=== PATIENT | female | born 1940 | race Caucasian/White ===

== ENCOUNTER 2016-11-24 07:30 | Inpatient (IN) ==
[2016-11-19 14:58] LABS: Appearance,Urine CLEAR; Bilirubin,Urine NEG (NEG); Color,Urine YELLOW; Glucose,Urine (UA) NEGATIVE (NEG); Leukocyte Esterase,Urine NEG /uL (NEG); Nitrate,Urine NEG (NEG); Protein,Urine NEG (NEG); Specific Gravity,Urine 1.019 (1.000-1.035); Urine Blood NEG mg/dL (<0.03); Urobilinogen,Urine NEG (NEG)
[2016-11-19 16:06] LABS: Blood Urea Nitrogen 22 mg/dl (8-23)
[2016-11-19 16:11] LABS: Basophils # (Auto) 0 K/mcL (0.0-0.3); Basophils % (Auto) 0.6 % (0.0-2.0); Eosinophils # (Auto) 0.1 K/mcL (0.0-0.7); Eosinophils % (Auto) 2.4 % (0.0-7.0); Granulocytes % (Auto) 64.9 % (38.0-78.0); Lymphocytes % (Auto) 22.7 % (15.5-49.0); Mean Cell Volume 91.2 fL (80.0-100.0); Mean Corpuscular HGB Conc 32.7 g/dL (31.0-36.0); Mean Corpuscular Hemoglobin 29.8 pg (26.0-34.0); Monocytes # (Auto) 0.4 K/mcL (0.1-0.9); Monocytes % (Auto) 9.4 % (1.0-9.0); Platelet Count 243 K/mcL (140-440); Red Cell Distribution Width 13.5 % (11.5-14.5)
[~2016-11-24 07:30] MED LIST: CELECOXIB 200 MG CAPSULE PO SCH; KETOROLAC 30 MG, ROPIVACAINE HCL/PF 49.5 ML, EPINEPHrine 0.5 MG, 0.9 % SODIUM CHLORIDE ... IJ ONE; PREGABALIN 150 MG CAPSULE PO SCH; ceFAZolin 1 GM VIAL IV SCH; oxyCODONE 10 MG TAB.ER.12H PO SCH
[2016-11-24] MEDS ORDERED: PROPOFOL 200 MG/20 ML VIAL IV ONE (09:25)
[2016-11-24] MEDS ORDERED: MIDAZOLAM 5 MG/5 ML VIAL IV ONE (09:25)
[2016-11-24] MEDS ORDERED: LIDOCAINE HCL/PF 100 MG/5 ML SYRINGE IV ONE (09:25)
[2016-11-24] MEDS ORDERED: DEXAMETHASONE 10 MG/ML VIAL IV ONE (09:25)
[2016-11-24] MEDS ORDERED: SUCCINYLCHOLINE 20 MG/ML ML IV ONE (09:25)
[2016-11-24] MEDS ORDERED: fentaNYL 100 MCG/2 ML VIAL IV ONE (09:25)
[2016-11-24] MEDS ORDERED: ONDANSETRON 4 MG/2 ML VIAL IV ONE (09:25)
[2016-11-24] MEDS ORDERED: ROPIVACAINE HCL/PF 30 ML VIAL IJ ONE (09:25)
[2016-11-24] MEDS ORDERED: TRANEXAMIC ACID 1,000 MG/10 ML VIAL IV ONE ×2 (09:25→11:10)
[2016-11-24] MEDS ORDERED: ONDANSETRON 4 MG/2 ML VIAL ONE (09:31)
[2016-11-24] MEDS ORDERED: GENTAMICIN SULFATE 800 MG/20 ML VIAL IR ONE (09:51)
[2016-11-24] MEDS ORDERED: FLUMAZENIL 0.1 MG/ML ML IV PRN (10:24)
[2016-11-24] MEDS ORDERED: BENZOCAINE/MENTHOL 1 LOZENGE PO PRN ×2 (10:24→11:10)
[2016-11-24] MEDS ORDERED: ePHEDrine 50 MG/ML AMPUL IV PRN (10:24)
[2016-11-24] MEDS ORDERED: NALOXONE HCL 0.4 MG/ML VIAL IV PRN (10:24)
[2016-11-24] MEDS ORDERED: MEPERIDINE 50 MG/ML SYRINGE IM PRN (10:24)
[2016-11-24] MEDS ORDERED: METHOCARBAMOL 1,000 MG/10 ML VIAL IV PRN (10:24)
[2016-11-24] MEDS ORDERED: HYDROmorphone 2 MG/ML SYRINGE IV PRN (10:24)
[2016-11-24] MEDS ORDERED: PROMETHAZINE 25 MG/ML VIAL IV PRN (10:24)
[2016-11-24] MEDS ORDERED: fentaNYL 100 MCG/2 ML VIAL IV PRN (10:24)
[2016-11-24] MEDS ORDERED: IPRATROPIUM/ALBUTEROL 3 ML AMPUL.NEB NEB PRN (10:24)
[2016-11-24] MEDS ORDERED: diphenhydrAMINE 50 MG/ML VIAL IV PRN (10:24)
[2016-11-24] MEDS ORDERED: METOPROLOL TARTRATE 5 MG/5 ML VIAL IV PRN (10:24)
[2016-11-24] MEDS ORDERED: ATROPINE SULFATE 0.4 MG/ML VIAL IV PRN (10:24)
[2016-11-24] MEDS ORDERED: MEPERIDINE 25 MG/ML SYRINGE IV PRN (10:24)
[2016-11-24] MEDS ORDERED: LACTATED RINGERS 1,000 ML IV SCH (10:30)
[2016-11-24] MEDS ORDERED: ACETAMINOPHEN 325 MG TABLET PO PRN (11:10)
[2016-11-24] MEDS ORDERED: FLEETS ADULT ENEMA PR PRN (11:10)
[2016-11-24] MEDS ORDERED: BISACODYL 10 MG SUPP.RECT PR PRN (11:10)
[2016-11-24] MEDS ORDERED: PROMETHAZINE 25 MG/ML VIAL IM PRN (11:10)
[2016-11-24] MEDS ORDERED: MAGNESIUM HYDROXIDE 30 ML ORAL.SUSP PO PRN (11:10)
[2016-11-24] MEDS ORDERED: POLYETHYLENE GLYCOL 3350 17 GM PACKET PO PRN (11:10)
--- NOTE | 2016-11-24 11:10 | Brief Operative Note ---
Date of procedure: 11/24/16 Pre-op diagnosis: left knee oa Post-op diagnosis: same Procedure: left total knee arthroplasty Grafts/Implants: Yes Anesthesia: spinal Complications: none Surgeon: Luis Gaines Airplane Engineer: Daniel Clemente Estimated blood loss (cc): 150 Tourniquet Time (Minutes): 20 Specimens Removed/Pathology: none sent Condition: stable Disposition: PACU
--- NOTE | 2016-11-24 12:19 | XRay Report ---
CLINICAL INFORMATION: Total knee prostheses COMPARISON: None. FINDINGS: Total knee prostheses is anatomically aligned. There are no osseous abnormality. Gas and soft tissue swelling seen as expected. IMPRESSION: Negative Interpreted and Authenticated by: Luis Hong 11/24/16
--- NOTE | 2016-11-24 12:22 | Operative Note ---
DATE OF OPERATION: 11/24/2016 PREOPERATIVE DIAGNOSIS: Degenerative joint disease, left knee. POSTOPERATIVE DIAGNOSIS: Degenerative joint disease, left knee. PROCEDURE: Left total knee arthroplasty. SURGEON: Andrew Gaines M.D. STEWARD/STEWARDESS NIGHT SURGEON: Daniel Clemente PA-C. ANESTHESIA: Spinal with LMA assist. ESTIMATED BLOOD LOSS: 100 mL. COMPLICATIONS: None noted. SPECIMENS REMOVED: None. DRAINS: None. TOURNIQUET TIME: 20 minutes at 300 mmHg. IMPLANTS: DePuy Attune tibial insert fixed bearing posterior stabilized size 4, 5 mm AOX; DePuy Attune patella medialized dome 32 mm cemented AOX; DePuy Attune femoral posterior stabilized size 4, left cemented; DePuy Attune tibial base fixed bearing size 3 cemented. INDICATIONS: The patient has had a long-standing history of worsening pain in the knee that has failed conservative treatment. Radiographs have confirmed advanced degenerative joint disease. After a long discussion about treatment options, the patient elected to proceed with a knee arthroplasty. The risks and benefits were discussed with the patient in detail including, but not limited to, the risks of anesthesia, problems with the heart or lungs related to anesthesia, infection, compromise or injury to the nerves and blood vessels, deep venous thrombosis, pulmonary embolism, pneumonia, continued pain after surgery, worsening pain or symptoms after surgery, swelling, loss of motion, instability, leg length discrepancy, and need for repeat surgery. DESCRIPTION OF PROCEDURE: The patient was seen in the pre-anesthesia waiting room where all questions were answered and the correct side and site were identified and marked. The patient was transferred to the operating room and administered the anesthetic and given pre-operative antibiotics. A time-out was then called. The extremity was prepped and draped, exsanguinated, and the tourniquet was inflated to 300 mmHg. A midline skin incision was then made with a standard medial parapatellar arthrotomy. Debridement of the menisci, ACL, and PCL was performed followed by balancing releases in the medial lateral plane. We then established intramedullary access to both the femur and tibia in a standard fashion. The femoral guide jose miguel was initially placed with the distal femoral guide, pinned into place, and the distal femoral cut was performed and checked with a flat plate. We then turned our attention to the tibia. The intramedullary guide was placed with the proximal tibial cutting block. The block was appropriately positioned off the affected side, varus and valgus was checked with the extra-medullary guide, and the block was pinned into place. The proximal tibial cut was performed and the tibia was prepared for the tibial implant with appropriate rotation. The tibia, femur, and posterior compartment were debrided of osteophytes, loose bodies, and meniscal fragments We then used the gap balancing technique to balance extension with the first two cuts and good balancing was obtained with a 10 millimeter gap block. We turned our attention back to the femur and used the referencing block and implant to size appropriately. Using the gap balancing technique for the flexion space we set our rotation of the femur off the tibial cut. Anesthesia gave the patient 1 gram of Tranexamic Acid via an intravenous route. We placed the 4 in 1 cutting block and made anterior, posterior, and chamfer cuts. Box plasty cuts were then made in a standard fashion for the posterior stabilized prosthesis. We then completed osteophyte release and posterior capsule release from the posterior compartment. Trials were placed and we chose the polyethylene insert thickness that provided the best stability in all planes. With the trials in place, we did a measured resection for a resurfacing patella. We sized the patella and placed the patella trial and performed a lateral facetectomy with the saw and rongeur. Good tracking was obtained. A lateral release was performed. We removed all trials, irrigated and dried all cut surfaces. We cemented the components into place including tibia, femur and patella. We placed a trial liner and held the knee in full extension with the patella compressed while the cement cured. We then removed all excess cement and placed the final polyethylene tibiofemoral component. Irrigation with 3 liters of antibiotic saline was then performed using jet-lavage. We let the tourniquet down and coagulated bleeding vessels. We injected a 100 cubic centimeter volume including Ropivacaine 49.25 cubic centimeters at 5 milligrams per cubic centimeter, Ketorolac 30 milligrams, and Epinephrine 0.5 milligrams into 100 cubic centimeters volume of normal saline. We placed a deep drain and closed the retinaculum with looped #0 Maxon. We closed the subcutaneous tissue and skin in layers out to el in the skin. A sterile pressure dressing was applied. All needle and sponge counts were correct. The patient was transferred to the recovery room in stable condition. YVETTE:sherly Job ID: [id number] Doc ID: [id number] Andrew Gaines MD
[2016-11-24] MEDS: 0.9 % SODIUM CHLORIDE 1,000 ML IV SCH ×2 (12:30→20:31)
[2016-11-24] MEDS: 0.9 % SODIUM CHLORIDE 10 ML SYRINGE IV SCH ×2 (12:49→21:32)
[2016-11-24] MEDS: KETOROLAC 15 MG/ML VIAL IV SCH ×2 (12:49→17:08)
[2016-11-24] MEDS: HYDROcodone/APAP 10/325MG TABLET PO PRN ×2 (14:44→22:39)
[2016-11-24] MEDS: HYDROmorphone 2 MG/ML SYRINGE IV PRN (14:49)
[2016-11-24] MEDS: FERROUS SULFATE 325 MG TABLET PO SCH (17:08)
[2016-11-24] MEDS: ceFAZolin 1 GM VIAL IV SCH (17:08)
[2016-11-24] MEDS: SENNOSIDES 1 TABLET PO SCH (20:30)
[2016-11-24] MEDS: DOCUSATE SODIUM 100 MG CAPSULE PO SCH (20:31)
[2016-11-24] MEDS: ASPIRIN 325 MG ENTERIC COATED TABLET PO SCH (20:31)
[2016-11-25] MEDS: KETOROLAC 15 MG/ML VIAL IV SCH ×5 (00:07→23:23)
[2016-11-25] MEDS: ceFAZolin 1 GM VIAL IV SCH (00:07)
[2016-11-25] MEDS: HYDROmorphone 2 MG/ML SYRINGE IV PRN ×3 (01:51→19:22)
[2016-11-25] MEDS: METHOCARBAMOL 750 MG TABLET PO PRN ×2 (01:52→20:49)
[2016-11-25] MEDS: 0.9 % SODIUM CHLORIDE 1,000 ML IV SCH ×3 (05:02→19:28)
[2016-11-25] MEDS: 0.9 % SODIUM CHLORIDE 10 ML SYRINGE IV SCH ×3 (05:36→20:49)
[2016-11-25] MEDS: PANTOPRAZOLE 40 MG TABLET PO SCH (07:27)
--- NOTE | 2016-11-25 07:49 | Orthopedic Progress Note ---
Subjective Patient information: Note initiated : 11/25/16 at 7:47 am Service Date, if different from initiated Date: [] Patient: Annalee Ortiz 76 y/o F admitted on 11/24/16 for Left Total Knee Arthroplasty. Chief Complaint: [] Principal diagnosis: left TKA Interval history: Doing well. O2 sats low and she feels like she isn't taking deep breathes. Isn' t ready for DC home today. Anticipate DC home tomorrow. Denies calf pain, chest pain, SOB Objective Vital signs: Vital Signs Temp Pulse Pulse Resp BP BP Pulse Ox 11/25/16 07:21 96.4 F L 83 18 104/68 98 11/25/16 04:00 97.3 F L 91 H 12 109/74 97 11/24/16 23:32 97.5 F L 82 12 115/71 97 11/24/16 20:00 97.2 F L 103 H 12 109/74 98 11/24/16 18:38 96 11/24/16 15:58 98.0 F 91 H 125/80 98 11/24/16 15:55 149/80 99 11/24/16 15:37 93 H 135/81 99 11/24/16 15:22 86 106/71 92 11/24/16 15:07 90 151/80 98 11/24/16 14:53 97 H 132/77 98 11/24/16 14:37 89 132/80 99 11/24/16 14:07 86 122/74 100 11/24/16 13:37 88 121/73 100 11/24/16 12:05 97.4 F L 84 12 131/62 100 11/24/16 11:50 97.4 F L 88 12 128/58 100 11/24/16 11:35 83 18 112/54 100 11/24/16 11:18 97.7 F 74 16 140/69 98 11/24/16 08:00 97.7 F 74 16 140/69 98 Intake and Output 11/24/16 11/25/16 11/25/16 21:59 05:59 13:59 Intake Total 1180 / 1180 540 / 540 Output Total 160 / 160 Balance 1020 / 1020 540 / 540 Intake: IV 1000 / 1000 Sodium Chloride 0.9% 1, 1000 / 1000 000 ml @ 125 mls/hr IV . Q8H [facility] Rx#:[id number] Oral 180 / 180 540 / 540 Output: Void Amount 160 / 160 Other: Meal Dinner Percent of Meal Consumed 100% Feeding Ability Independent # Voids 1 Weight 141 lb Intake & Output: Intake & Output 11/24/16 11/25/16 11/25/16 21:59 05:59 13:59 Intake Total 1180 / 1180 540 / 540 Output Total 160 / 160 Balance 1020 / 1020 540 / 540 Weight 141 lb Intake: IV 1000 / 1000 Sodium Chloride 0.9% 1, 1000 / 1000 000 ml @ 125 mls/hr IV . Q8H [facility] Rx#:[id number] Oral 180 / 180 540 / 540 Output: Void Amount 160 / 160 Other: Meal Dinner Percent of Meal Consumed 100% Feeding Ability Independent # Voids 1 Incision: Yes clean and dry Dressing: Yes clean, Yes dry, Yes intact Weight bearing status: as tolerated Neurological exam IM: Yes alert, Yes oriented X3, Yes motor sensory intact, Yes neurovascular intact Extremities exam IM: Yes normal inspection, Yes Foot pink and warm, Yes neurovascular intact - Periperhal Pulses Peripheral pulses: 2+: dorsalis pedis (L), dorsalis pedis (R), posterior tibialis (L), posterior tibialis (R) - Labs CBC & BMP: 11/19/16 11:48 11/19/16 11:48 Labs: Orthopedic Labs 11/19/16 11:48 PT 12.6 INR 0.9 11/25/16 11/19/16 06:33 11:48 Hgb Pending 12.8 Hct Pending 39.2 Assessment and Plan (1) S/P total knee arthroplasty PO day 1 s/p left total knee arthroplasty WBAT PT DVT prophylaxis Pain control DC planning for tomorrow Continue to use IS to increase O2 sats Status: Acute Qualifiers: Laterality: left Qualified Code(s): Z96.652 - Presence of left artificial knee joint
[2016-11-25] MEDS: DOCUSATE SODIUM 100 MG CAPSULE PO SCH ×2 (08:39→20:49)
[2016-11-25] MEDS: FERROUS SULFATE 325 MG TABLET PO SCH ×2 (08:39→17:38)
[2016-11-25] MEDS: POTASSIUM CHLORIDE 10 MEQ TABLET PO SCH (08:39)
[2016-11-25] MEDS: ASPIRIN 325 MG ENTERIC COATED TABLET PO SCH ×2 (08:39→20:49)
[2016-11-25] MEDS: TRIAMTERENE/HYDROCHLOROTHIAZID 1 TABLET PO SCH (08:39)
[2016-11-25] MEDS: CALCIUM W/VIT D3 500 MG TABLET PO SCH (08:40)
[2016-11-25] MEDS: HYDROcodone/APAP 10/325MG TABLET PO PRN ×3 (08:42→23:22)
[2016-11-25] MEDS: ONDANSETRON 4 MG/2 ML VIAL IV PRN ×2 (13:51→20:55)
[2016-11-25] MEDS: ONDANSETRON ODT 4 MG TABLET SL PRN (13:59)
[2016-11-25] MEDS: SENNOSIDES 1 TABLET PO SCH (20:49)
[2016-11-26] MEDS: 0.9 % SODIUM CHLORIDE 1,000 ML IV SCH (03:44)
[2016-11-26] MEDS: HYDROcodone/APAP 10/325MG TABLET PO PRN ×2 (04:09→08:35)
[2016-11-26] MEDS: KETOROLAC 15 MG/ML VIAL IV SCH (05:39)
[2016-11-26] MEDS: 0.9 % SODIUM CHLORIDE 10 ML SYRINGE IV SCH (05:40)
--- NOTE | 2016-11-26 06:44 | Orthopedic Progress Note ---
Subjective Patient information: Note initiated : 11/26/16 at 6:41 am Service Date, if different from initiated Date: [] Patient: Annalee Ortiz 76 y/o F admitted on 11/24/16 for Left Total Knee Arthroplasty. Chief Complaint: [] Principal diagnosis: left TKA Interval history: doing well. no complaints. Objective Vital signs: Vital Signs Temp Pulse Pulse Resp BP BP Pulse Ox 11/26/16 04:00 97.7 F 79 12 120/66 98 11/26/16 00:00 97.3 F L 75 12 154/76 97 11/25/16 20:00 98.3 F 86 12 134/71 98 11/25/16 19:31 82 11/25/16 19:30 88 20 97 11/25/16 15:24 97.7 F 79 16 122/71 98 11/25/16 13:54 123/73 11/25/16 11:37 97.2 F L 81 16 94/60 98 11/25/16 07:55 98 11/25/16 07:54 83 12 98 11/25/16 07:21 96.4 F L 83 18 104/68 98 Intake and Output 11/25/16 11/26/16 11/26/16 21:59 05:59 13:59 Intake Total 275 / 275 Output Total 700 / 700 550 / 550 Balance -700 / -700 -275 / -275 Intake: Oral 275 / 275 Output: Void Amount 700 / 700 550 / 550 Other: # Voids 1 Weight 141 lb Intake & Output: Intake & Output 11/25/16 11/26/16 11/26/16 21:59 05:59 13:59 Intake Total 275 / 275 Output Total 700 / 700 550 / 550 Balance -700 / -700 -275 / -275 Weight 141 lb Intake: Oral 275 / 275 Output: Void Amount 700 / 700 550 / 550 Other: # Voids 1 Incision: Yes healing, Yes clean and dry Incision clean and dry: Yes Dressing: Yes clean, Yes dry, Yes intact Weight bearing status: full Neurological exam IM: Yes alert, Yes normal gait, Yes oriented X3, Yes neurovascular intact Extremities exam IM: No calf tenderness, Yes Foot pink and warm, Yes neurovascular intact - Labs CBC & BMP: 11/25/16 06:33 11/19/16 11:48 Labs: Orthopedic Labs 11/19/16 11:48 PT 12.6 INR 0.9 11/26/16 11/25/16 11/19/16 05:45 06:33 11:48 Hgb Pending 10.3 L 12.8 Hct Pending 31.7 L 39.2 Assessment and Plan (1) S/P total knee arthroplasty pod 2 s/p tka wbat pain control dvt prophylaxis d/c planning - home today if passes pt Status: Acute Qualifiers: Laterality: left Qualified Code(s): Z96.652 - Presence of left artificial knee joint
--- NOTE | 2016-11-26 06:45 | Discharge Summary ---
Ortho Discharge - TKA - Patient Instructions Diet: Regular Diet Activity: ambulate with assistive device, weight bearing as tolerated Total Knee Protocol: For Total Knee: Start ROM SKY with stationary bike or rocking chair. Work on gaining full extension of knee. Posterior dislocation precautions provided. Hip abductor strengthening and gait training instructions provided. Apply Cryocuff as instructed. Dressing Care: May shower in 2 days - Problem Maintenance (1) S/P total knee arthroplasty Status: Acute Qualifiers: Laterality: left Qualified Code(s): Z96.652 - Presence of left artificial knee joint - Follow Up Plan Disposition: Home Health Service Prognosis: Good Rehab Potential: Good I certify that the patient requires SNF services: No Overall status at discharge: patient is progressing back to baseline
[2016-11-26] MEDS: PANTOPRAZOLE 40 MG TABLET PO SCH (07:31)
[2016-11-26] MEDS: METHOCARBAMOL 750 MG TABLET PO PRN (07:31)
[2016-11-26] MEDS: CALCIUM W/VIT D3 500 MG TABLET PO SCH (08:35)
[2016-11-26] MEDS: TRIAMTERENE/HYDROCHLOROTHIAZID 1 TABLET PO SCH (08:35)
[2016-11-26] MEDS: FERROUS SULFATE 325 MG TABLET PO SCH (08:36)
[2016-11-26] MEDS: DOCUSATE SODIUM 100 MG CAPSULE PO SCH (08:36)
[2016-11-26] MEDS: POTASSIUM CHLORIDE 10 MEQ TABLET PO SCH (08:36)
[2016-11-26] MEDS: ASPIRIN 325 MG ENTERIC COATED TABLET PO SCH (08:36)
[2016-11-26] MEDS: ONDANSETRON ODT 4 MG TABLET SL PRN (10:23)
== END 2016-11-26 10:25 | disposition home health service (06) | DRG 470 ==
LOC: MEDSUR 07:30
PROVIDERS: ADMIT Orthopaedic Surgery Sports Medicine; ATTEND Orthopaedic Surgery Sports Medicine

== ENCOUNTER 2018-07-13 04:53 | Inpatient (IN) ==
[2018-07-08 15:10] LABS: Appearance,Urine CLEAR; Bacteria,Urine 0 /hpf (0); Bilirubin,Urine NEG (NEG); Color,Urine YELLOW; Glucose,Urine (UA) NEGATIVE (NEG); Leukocyte Esterase,Urine 25 /uL (NEG); Mucus,Urine FEW /hpf (0); Protein,Urine NEG (NEG); Specific Gravity,Urine 1.015 (1.000-1.035); Urine Blood NEG mg/dL (<0.03); Urine RBC 0 /hpf (0-1); Urine Squamous Epithelial Cell 1 /hpf (0-4); Urine Transitional Epi Cells < 1 /hpf (0-2); Urine WBC 3 /hpf (0-4); Urobilinogen,Urine NEG (NEG)
[2018-07-08 15:42] LABS: Basophils # (Auto) 0 K/mcL (0.0-0.3); Basophils % (Auto) 0.4 % (0.0-2.0); Eosinophils # (Auto) 0 K/mcL (0.0-0.7); Eosinophils % (Auto) 0.7 % (0.0-7.0); Granulocytes % (Auto) 78.9 % (38.0-78.0); Lymphocytes # (Auto) 0.8 K/mcL (1.5-4.8); Lymphocytes % (Auto) 13.3 % (15.5-49.0); Mean Cell Volume 89.3 fL (80.0-100.0); Mean Corpuscular Hemoglobin 30.4 pg (26.0-34.0); Monocytes # (Auto) 0.4 K/mcL (0.1-0.9); Monocytes % (Auto) 6.7 % (1.0-12.0); Platelet Count 223 K/mcL (140-440); RBC 4.24 M/mcL (4.00-5.20); Red Cell Distribution Width 13.8 % (11.5-14.5)
[2018-07-08 15:49] LABS: Blood Urea Nitrogen 14 mg/dl (8-23)
[2018-07-13] MEDS ORDERED: oxyCODONE 10 MG TAB.ER.12H PO SCH (07:00)
[2018-07-13] MEDS ORDERED: CELECOXIB 200 MG CAPSULE PO SCH (07:00)
[2018-07-13] MEDS ORDERED: ceFAZolin 1 GM VIAL IV SCH (07:00)
[2018-07-13] MEDS ORDERED: PREGABALIN 75 MG CAPSULE PO SCH (07:00)
[2018-07-13] MEDS ORDERED: PROPOFOL 200 MG/20 ML VIAL IV ONE (07:30)
[2018-07-13] MEDS ORDERED: TRANEXAMIC ACID 1,000 MG/10 ML VIAL IV ONE ×2 (07:30→08:50)
[2018-07-13] MEDS ORDERED: PHENYLEPHRINE 10 MG/ML VIAL IV ONE (07:30)
[2018-07-13] MEDS ORDERED: fentaNYL 100 MCG/2 ML VIAL IV ONE (07:30)
[2018-07-13] MEDS ORDERED: ONDANSETRON 4 MG/2 ML VIAL IV ONE (07:30)
[2018-07-13] MEDS ORDERED: DEXAMETHASONE 10 MG/ML VIAL IV ONE (07:30)
[2018-07-13] MEDS ORDERED: LIDOCAINE HCL/PF 100 MG/5 ML SYRINGE IV ONE (07:30)
[2018-07-13] MEDS ORDERED: MIDAZOLAM 5 MG/5 ML VIAL IV ONE (07:30)
[2018-07-13] MEDS ORDERED: ePHEDrine 50 MG/ML AMPUL IV ONE (07:30)
[2018-07-13] MEDS ORDERED: SUCCINYLCHOLINE 20 MG/ML ML IV ONE (07:30)
[2018-07-13] MEDS ORDERED: GENTAMICIN SULFATE 800 MG/20 ML VIAL IR ONE (07:57)
[2018-07-13] MEDS ORDERED: METHOCARBAMOL 1,000 MG/10 ML VIAL IV PRN (08:32)
[2018-07-13] MEDS ORDERED: ACETAMINOPHEN 1,000 MG/100 ML BOTTLE IV ONE (08:32)
[2018-07-13] MEDS ORDERED: PROMETHAZINE 25 MG/ML VIAL IV PRN (08:32)
[2018-07-13] MEDS ORDERED: fentaNYL 100 MCG/2 ML VIAL IV PRN (08:32)
[2018-07-13] MEDS ORDERED: METOPROLOL TARTRATE 5 MG/5 ML VIAL IV PRN (08:32)
[2018-07-13] MEDS ORDERED: ePHEDrine 50 MG/ML AMPUL IV PRN (08:32)
[2018-07-13] MEDS ORDERED: MEPERIDINE 25 MG/ML SYRINGE IV PRN (08:32)
[2018-07-13] MEDS ORDERED: HYDROmorphone 2 MG/ML VIAL IV PRN (08:32)
[2018-07-13] MEDS ORDERED: IPRATROPIUM/ALBUTEROL 3 ML AMPUL.NEB NEB PRN (08:32)
[2018-07-13] MEDS ORDERED: ONDANSETRON 4 MG/2 ML VIAL IV PRN ×2 (08:32→08:50)
[2018-07-13] MEDS ORDERED: FLUMAZENIL 0.1 MG/ML ML IV PRN (08:32)
[2018-07-13] MEDS ORDERED: ATROPINE SULFATE 0.4 MG/ML VIAL IV PRN (08:32)
[2018-07-13] MEDS ORDERED: NALOXONE HCL 0.4 MG/ML VIAL IV PRN (08:32)
[2018-07-13] MEDS ORDERED: diphenhydrAMINE 50 MG/ML VIAL IV PRN (08:32)
[2018-07-13] MEDS ORDERED: LACTATED RINGERS 1,000 ML IV SCH (08:45)
--- NOTE | 2018-07-13 08:49 | Brief Operative Note ---
Date of procedure: 07/13/18 Pre-op diagnosis: right hip oa Post-op diagnosis: same Procedure: right total hip arthroplasty Grafts/Implants: Yes Anesthesia: spinal Complications: none Surgeon: Luis Gaines Communication Skills Instructor: Britt Chong Estimated blood loss (cc): 150 Specimens Removed/Pathology: none sent Condition: stable Disposition: PACU
[2018-07-13] MEDS ORDERED: BISACODYL 10 MG SUPP.RECT PR PRN (08:50)
[2018-07-13] MEDS ORDERED: POLYETHYLENE GLYCOL 3350 17 GM PACKET PO PRN (08:50)
[2018-07-13] MEDS ORDERED: ONDANSETRON ODT 4 MG TABLET SL PRN (08:50)
[2018-07-13] MEDS ORDERED: KETOROLAC 15 MG/ML VIAL IV PRN (08:50)
[2018-07-13] MEDS ORDERED: FLEETS ADULT ENEMA PR PRN (08:50)
[2018-07-13] MEDS ORDERED: BENZOCAINE/MENTHOL 1 LOZENGE PO PRN (08:50)
[2018-07-13] MEDS ORDERED: SENNOSIDES/DOCUSATE SODIUM 1 TAB TABLET PO SCH (09:00)
[2018-07-13] MEDS: DOCUSATE SODIUM 100 MG CAPSULE PO SCH ×3 (09:47→20:22)
--- NOTE | 2018-07-13 09:48 | Operative Note ---
DATE OF OPERATION: 07/13/2018 PREOPERATIVE DIAGNOSIS: Degenerative joint disease, right hip. POSTOPERATIVE DIAGNOSIS: Degenerative joint disease, right hip. PROCEDURE: Right total hip arthroplasty. SURGEON: Andrew Gaines M.D. EDGE BONDER SURGEON: Britt Chong PA-C ANESTHESIA: Spinal with LMA assist. ESTIMATED BLOOD LOSS: 150 mL COMPLICATIONS: None noted. SPECIMENS REMOVED: None. DRAINS: None. IMPLANTS: DePuy Euclid Gription acetabular shell 48 mm diameter, DePuy femoral stem Actis DuoFix size 2 standard collar, DePuy Euclid AltrX polyethylene acetabular liner, neutral 32 x 48, DePuy Biolox Delta ceramic femoral head +1 32 mm. INDICATIONS: The patient has had a longstanding history of worsening pain in the hip that has failed conservative treatment. Radiographs have confirmed advanced degenerative joint disease. After a long discussion about treatment options, the patient elected to proceed with a hip arthroplasty. The risks and benefits were discussed with the patient in detail including, but not limited to, the risks of anesthesia, problems with the heart or lungs related to anesthesia, infection, compromise or injury to the nerves and blood vessels, deep venous thrombosis, pulmonary embolism, pneumonia, continued pain after surgery, worsening pain or symptoms after surgery, swelling, loss of motion, instability, leg length discrepancy, and need for repeat surgery. DESCRIPTION OF PROCEDURE: The patient was seen in pre-anesthesia waiting room where all questions were answered and the correct side and site were identified and marked. The patient was then brought to the operating room and administered the anesthetic and given pre-operative antibiotics. A time-out was then called. The patient was placed in the lateral decubitus position with all prominences well-padded using the Minh frame and the extremity was prepped and draped in the usual sterile fashion. Anesthesia gave the patient 1 gm of tranexamic acid via an intravenous route. A standard posterior approach was made. We dissected through the skin and subcutaneous tissue to the deep fascia. The deep fascia was split in line with the incision and a Charnley retractor was placed. We exposed, tagged, and incised the short external rotators and piriformis tendon and retracted them posteriorly to help protect the sciatic nerve which was palpated throughout the case. We then performed a T-capsulotomy and tagged the capsule edges. Prior to dislocating the hip, we set a length and offset gauge from a Steinmann pin in the iliac wing to a verna on the greater trochanter. The hip was then dislocated and a femoral neck osteotomy was performed to the pre-surgical templated level off the lesser trochanter. The head was removed and sized. We next turned our attention to the acetabulum. Retractors were placed for optimal visualization. A complete labral excision was performed. The capsule was preserved for later closure. We began reaming using anatomic landmarks with the DePuy Euclid acetabular system. We medialized the cup and reamed up to provide good fill and coverage of the trial. When the trial was stable and appropriately positioned with approximately 20 degrees of anteversion and 45 degrees of abduction, we impacted the DePuy Euclid cup and placed a cancellous screw in the posterior-superior quadrant. Osteophytes were removed from around the shell. We placed the trial liner and turned our attention to the femur. We placed retractors for visualization, internally rotated the femur, and established intramedullary access. We broached using the DePuy Actis stem to a stable platform medial, lateral, and rotationally with the appropriate version. We then performed a calcar reaming off the broach. Trials were then placed and optimized for leg length and stability. We used the leg length and offset guide to confirm our trials. Best stability, length, and offset characteristics were obtained with these sizes. We removed all trials and impacted the polyethylene acetabular liner in a standard fashion after a thorough irrigation. We then impacted the femoral stem to its broached location and placed the head. Final reduction was performed. Again, good stability, leg length, and offset characteristics were noted. We irrigated with three liters of antibiotic saline. We closed the capsule with #2 FiberWire. We closed the fascia with a combination of #2 Stratafix and #0 Vicryl. We closed the subcutaneous tissue and skin in layers out to Dermabond on the skin. A sterile pressure dressing and abduction wedge was applied. All needle and sponge counts were correct. The patient was transferred to the recovery room in stable condition. YVETTE:nydia Job ID: [id number] Doc ID: [id number] Andrew Gaines MD
--- NOTE | 2018-07-13 09:57 | XRay Report ---
HISTORY: Postop right hip replacement FINDINGS: There is a well-positioned right total hip prosthesis. No fracture or dislocation are present. There is severe disc space narrowing at L4-5 with large marginal spurs. IMPRESSION: Well-positioned right hip prosthesis Interpreted and Authenticated by: Ulises Miranda 07/13/18
[2018-07-13] MEDS: 0.9 % SODIUM CHLORIDE 1,000 ML IV SCH ×2 (10:35→17:56)
[2018-07-13] MEDS: ASPIRIN 325 MG ENTERIC COATED TABLET PO SCH ×2 (12:06→20:22)
[2018-07-13] MEDS: MAGNESIUM OXIDE 400 MG TABLET PO SCH (12:07)
[2018-07-13] MEDS: HYDROcodone/APAP 10/325MG TABLET PO PRN ×2 (14:26→17:55)
[2018-07-13] MEDS: ceFAZolin 1 GM VIAL IV SCH ×2 (15:16→23:11)
[2018-07-13] MEDS: 0.9 % SODIUM CHLORIDE 10 ML SYRINGE IV SCH ×2 (15:29→20:23)
[2018-07-13] MEDS: OMEPRAZOLE 20 MG CAPSULE PO SCH (17:16)
[2018-07-13] MEDS: SENNOSIDES 1 TABLET PO SCH (20:22)
[2018-07-14] MEDS: HYDROcodone/APAP 10/325MG TABLET PO PRN ×4 (01:25→20:37)
[2018-07-14] MEDS: 0.9 % SODIUM CHLORIDE 1,000 ML IV SCH ×3 (01:56→16:31)
[2018-07-14] MEDS: 0.9 % SODIUM CHLORIDE 10 ML SYRINGE IV SCH ×3 (06:12→20:32)
[2018-07-14] MEDS: OMEPRAZOLE 20 MG CAPSULE PO SCH ×2 (07:28→16:29)
[2018-07-14] MEDS: MAGNESIUM HYDROXIDE 30 ML ORAL.SUSP PO PRN (08:39)
[2018-07-14] MEDS: TRIAMTERENE/HYDROCHLOROTHIAZID 1 TABLET PO SCH (08:39)
[2018-07-14] MEDS: ASPIRIN 325 MG ENTERIC COATED TABLET PO SCH ×2 (08:39→20:31)
[2018-07-14] MEDS: DOCUSATE SODIUM 100 MG CAPSULE PO SCH ×2 (08:39→20:31)
[2018-07-14] MEDS: POTASSIUM CHLORIDE 10 MEQ TABLET PO SCH (08:39)
[2018-07-14] MEDS: MAGNESIUM OXIDE 400 MG TABLET PO SCH (08:39)
--- NOTE | 2018-07-14 12:21 | Orthopedic Progress Note ---
Subjective Patient information: Note initiated : 07/14/18 at 12:20 pm Service Date, if different from initiated Date: [] Patient: Annalee Ortiz 77 y/o F admitted on 07/13/18 for Right Total Hip Arthroplasty. Chief Complaint: [] Interval history: doing well. pain under control Objective Vital signs: Vital Signs Temp Pulse Resp BP Pulse Ox 07/14/18 08:40 93/66 07/14/18 07:21 97.9 F 81 16 107/64 94 07/14/18 04:00 97.5 F 80 12 112/63 97 07/13/18 23:32 98.0 F 82 12 148/68 97 07/13/18 20:00 97.3 F 77 12 143/79 97 07/13/18 17:35 98.5 F 90 14 127/16 95 07/13/18 16:32 97.8 F 73 14 123/74 96 07/13/18 12:50 70 144/77 96 Intake and Output 07/13/18 07/14/18 07/14/18 21:59 05:59 13:59 Intake Total 1719 / 1719 1300 / 1300 542 / 542 Output Total 651 / 651 400 / 400 301 / 301 Balance 1068 / 1068 900 / 900 241 / 241 Intake: IV 919 / 919 1000 / 1000 542 / 542 Sodium Chloride 0.9% 1,000 ml @ 919 / 919 1000 / 1000 542 / 542 125 mls/hr IV .Q8H [facility] Rx#: [id number] Oral 800 / 800 300 / 300 Output: Void Amount 650 / 650 400 / 400 300 / 300 # of times incontinent of urine Emesis Other: Meal Breakfast Percent of Meal Consumed 100% Urine Color Bright Yellow # Voids 1 1 1 Weight 156 lb Intake & Output: Intake & Output 07/13/18 07/14/18 07/14/18 21:59 05:59 13:59 Intake Total 1719 / 1719 1300 / 1300 542 / 542 Output Total 651 / 651 400 / 400 301 / 301 Balance 1068 / 1068 900 / 900 241 / 241 Weight 156 lb Intake: IV 919 / 919 1000 / 1000 542 / 542 Sodium Chloride 0.9% 1,000 ml @ 919 / 919 1000 / 1000 542 / 542 125 mls/hr IV .Q8H [facility] Rx#: [id number] Oral 800 / 800 300 / 300 Output: Void Amount 650 / 650 400 / 400 300 / 300 # of times incontinent of urine Emesis Other: Meal Breakfast Percent of Meal Consumed 100% Urine Color Bright Yellow # Voids Incision: Yes healing Incision clean and dry: Yes Dressing: Yes clean, Yes dry, Yes intact Weight bearing status: full Neurological exam IM: Yes abnormal gait, Yes alert, Yes oriented X3, Yes motor sensory intact, Yes neurovascular intact Extremities exam IM: No calf tenderness, Yes Foot pink and warm, Yes neurovascular intact - Labs CBC & BMP: 07/14/18 05:32 07/08/18 13:07 Labs: Orthopedic Labs 07/08/18 13:07 PT 12.4 INR 0.9 07/14/18 07/08/18 05:32 13:07 Hgb 9.9 L 12.9 Hct 29.3 L 37.9 Assessment and Plan (1) Hip osteoarthritis s/p wayne pod 1 no pain wbat pt pain control dvt prophylaxis Status: Acute
--- NOTE | 2018-07-14 12:22 | Discharge Summary ---
Ortho Discharge - KAYLEEN - Patient Instructions Diet: Regular Diet Activity: activity as tolerated, ambulate with assistive device, weight bearing as tolerated Total Hip Protocol: Follow activity instructions as provided by Physical Therapy. Dressing Care: May shower in 2 days - Problem Maintenance (1) Hip osteoarthritis Status: Acute - Follow Up Plan Disposition: er SNF Prognosis: Good Rehab Potential: Good I certify that the patient requires SNF services: No Overall status at discharge: patient is progressing back to baseline
[2018-07-14] MEDS: SENNOSIDES 1 TABLET PO SCH (20:31)
[2018-07-15] MEDS: METHOCARBAMOL 750 MG TABLET PO PRN ×3 (00:02→20:22)
[2018-07-15] MEDS: HYDROcodone/APAP 10/325MG TABLET PO PRN ×5 (00:02→20:22)
[2018-07-15] MEDS: 0.9 % SODIUM CHLORIDE 10 ML SYRINGE IV SCH ×3 (06:35→20:23)
--- NOTE | 2018-07-15 06:55 | Orthopedic Progress Note ---
Subjective Patient information: Note initiated : 07/15/18 at 6:53 am Service Date, if different from initiated Date: [] Patient: Annalee Ortiz 77 y/o F admitted on 07/13/18 for Right Total Hip Arthroplasty. Chief Complaint: [POD #2 s/p right KAYLEEN Doing well this morning. Denies significant pain, numbness, tingling, SOB, CP. ] Objective Vital signs: Vital Signs Temp Pulse Resp BP Pulse Ox 07/15/18 04:00 98.1 F 84 18 112/68 96 07/15/18 00:00 98.2 F 98 H 18 151/72 94 07/14/18 20:00 97.8 F 86 18 130/69 98 07/14/18 16:17 96.9 F L 97 H 16 122/61 96 07/14/18 12:36 97.2 F 55 L 15 112/57 94 07/14/18 08:40 93/66 07/14/18 07:21 97.9 F 81 16 107/64 94 Intake and Output 07/14/18 07/15/18 07/15/18 21:59 05:59 13:59 Intake Total 220 / 220 800 / 800 Output Total 950 / 950 Balance 220 / 220 -150 / -150 Intake: Oral 220 / 220 800 / 800 Output: Void Amount 950 / 950 Other: Meal Dinner Percent of Meal Consumed 100% Feeding Ability Independent Stool Size Moderate Stool Color Brown Stool Consistency Soft # Voids 1 # Bowel Movements 1 Weight 157 lb Intake & Output: Intake & Output 07/14/18 07/15/18 07/15/18 21:59 05:59 13:59 Intake Total 220 / 220 800 / 800 Output Total 950 / 950 Balance 220 / 220 -150 / -150 Weight 157 lb Intake: Oral 220 / 220 800 / 800 Output: Void Amount 950 / 950 Other: Meal Dinner Percent of Meal Consumed 100% Feeding Ability Independent Stool Size Moderate Stool Color Brown Stool Consistency Soft # Voids 1 # Bowel Movements 1 Incision: Yes healing, No draining, No red, No swollen, No inflamed, Yes clean and dry Incision clean and dry: Yes Dressing: Yes clean, Yes dry, Yes intact Weight bearing status: as tolerated Neurological exam IM: Yes alert, Yes oriented X3, Yes motor sensory intact, Yes neurovascular intact Extremities exam IM: No calf tenderness, Yes normal capillary refill, No Moy' s sign, Yes Foot pink and warm, Yes neurovascular intact - Periperhal Pulses Peripheral pulses: 2+: dorsalis pedis (L), dorsalis pedis (R), posterior tibialis (L), posterior tibialis (R) - Labs CBC & BMP: 07/15/18 04:34 07/08/18 13:07 Labs: Orthopedic Labs 07/08/18 13:07 PT 12.4 INR 0.9 07/15/18 07/14/18 07/08/18 04:34 05:32 13:07 Hgb 9.9 L 9.9 L 12.9 Hct 29.2 L 29.3 L 37.9 Assessment and Plan (1) Hip osteoarthritis POD #2 s/p right KAYLEEN: -d/c planning to rehab 07/16/18 -pain control -DVT prophylaxis -dermabond -PT -WBAT -f/u in office 10-14 days for PO Status: Acute
[2018-07-15] MEDS: OMEPRAZOLE 20 MG CAPSULE PO SCH ×2 (07:41→16:38)
[2018-07-15] MEDS: TRIAMTERENE/HYDROCHLOROTHIAZID 1 TABLET PO SCH (08:49)
[2018-07-15] MEDS: POTASSIUM CHLORIDE 10 MEQ TABLET PO SCH (08:49)
[2018-07-15] MEDS: ASPIRIN 325 MG ENTERIC COATED TABLET PO SCH ×2 (08:49→20:22)
[2018-07-15] MEDS: MAGNESIUM HYDROXIDE 30 ML ORAL.SUSP PO PRN (08:49)
[2018-07-15] MEDS: DOCUSATE SODIUM 100 MG CAPSULE PO SCH ×2 (08:49→20:23)
[2018-07-15] MEDS: MAGNESIUM OXIDE 400 MG TABLET PO SCH (08:50)
[2018-07-15] MEDS: SENNOSIDES 1 TABLET PO SCH (20:23)
[2018-07-16] MEDS: HYDROcodone/APAP 10/325MG TABLET PO PRN ×2 (00:17→07:46)
[2018-07-16] MEDS: 0.9 % SODIUM CHLORIDE 10 ML SYRINGE IV SCH (05:56)
[2018-07-16] MEDS: OMEPRAZOLE 20 MG CAPSULE PO SCH (07:49)
[2018-07-16] MEDS: POTASSIUM CHLORIDE 10 MEQ TABLET PO SCH (08:16)
--- NOTE | 2018-07-23 08:02 | Discharge Summary ---
Providers - Providers Patient information: Note initiated : 07/23/18 at 7:59 am Service Date, if different from initiated Date: [] Patient: Annalee Ortiz 77 y/o F admitted on 07/13/18 for Right Total Hip Arthroplasty. Chief Complaint: Right KAYLEEN ] Discharge date: 07/16/18 Attending physician: Luis Gaines Hospitalization Hospital course: Patient was brought to OR on 07/13/18 for right KAYLEEN which happened without complication. She stayed in hospital for a total of 3 nights and transferred to SNF on 07/16/18 for further post operative management. There were no adverse events during her stay at [facility]. She will follow up in our clinic in 10-14 days for post op care. Discharge diagnosis: hip osteoarthritis Exam - Exam Incision healing: Yes Incision draining: No Incision red: No Incision swollen: No Incision inflamed: No Clean and dry: Yes Weight bearing status: as tolerated Ortho Discharge - KAYLEEN - Patient Instructions Diet: Regular Diet Activity: activity as tolerated, ambulate with assistive device, weight bearing as tolerated Total Hip Protocol: Follow activity instructions as provided by Physical Therapy. Patient Education: Total Hip Replacement (DC) Additional Instructions: Discharge Instructions: Do the exercises at home that physical therapy gave you throughout the day. Weight bearing as tolerated. Wear comfortable clothing for physical therapy. You have Dermabond (a dressing with a mesh-like appearance), DO NOT remove mesh. Cover site daily with gauze dressing. You may start showering on post op day #2. The Dermabond dressing can get wet, do not scrub dressing. Pat dry, then place new dressing (above). To avoid constipation while taking any narcotic pain medication, take an over the counter stool softener/laxative. Use ice packs as directed, on for 20 minutes at a time throughout the day. This and elevation will help with pain and swelling. Call your physician for fevers above 100.5 or pain not controlled by medication. Your prescriptions are with your discharge information. Some medications were electronically transmitted to your pharmacy of choice. Take Aspirin twice daily, for 30 days, as prescribed to prevent blood clots ( see medication list). - Problem Maintenance (1) Hip osteoarthritis Status: Acute - Follow Up Plan Follow Up Appointments: Luis Gaines MD [Physician] - 07/27/18 1:00 pm Disposition: Xfer [facility] Prognosis: Good Rehab Potential: Good I certify that the patient requires SNF services: No - Orders For Discharge Prescriptions: Aspirin [Ecotrin] 325 mg PO BID #60 tab.ec HYDROcodone/APAP 10/325MG [Doniphan 10-325Mg] 1 - 2 tab PO Q4H PRN #60 tab PRN Reason: Pain Additional Discharge Orders: OT Discharge Order Location: None Selected Physical Therapy at Discharge - KAYLEEN Location: None Selected Toilet Riser Discharge Order Location: None Selected Walker Location: None Selected Pending Studies Resuscitation Status Full Code Diet Regular Diet Start [id number] 13 [id number] Shift Summary 07/16/18 05:00 Shift Summary by Dacia Carcamo. Elizabeth&Ox4. Medicated for pain with 10mg PO Doniphan x 2 this shift, last at approx. 0015. Stool softeners held d/t loose BM x1 day and x1 NOC. Uses FWW to ambulate to B/R. IV to L FA is SL. Dressing to R. hip C/D/I. Using abductor wedge and SCDs. Discharge to [facility] today at 0900. Initialized on 07/16/18 05:00 - END OF NOTE
== END 2018-07-16 09:33 | DRG 470 ==
LOC: MEDSUR 04:53
PROVIDERS: ADMIT Orthopaedic Surgery Sports Medicine; ATTEND Orthopaedic Surgery Sports Medicine